=== PATIENT | female | born 1930 | race African-American/Black ===

== ENCOUNTER 2017-04-06 12:37 | Emergency (ER) | payer MEDICARE, MEDICAID ==
[~2017-04-06] VITALS: Ht 162.6 cm; Wt 61.2 kg
[2017-04-06] MEDS ORDERED: Zemuron 50mg/5ml Inj IV ONE ×2 (13:12→15:15)
[2017-04-06 13:35] VITALS: BP 188/86
[2017-04-06 13:40] LABS: APPEARANCE,URINE CLEAR; KETONES,URINE 1+ (NEGATIVE); LEUKOCYTE ESTERASE ,URINE NEGATIVE (NEGATIVE); NITRITE,URINE NEGATIVE (NEGATIVE); PH,URINE 7 (4.5-8.0); PROTEIN,URINE 1+ (NEGATIVE); UROBILINOGEN,URINE NORMAL MG/DL (0.0-1.0)
[2017-04-06 13:43] LABS: MEAN CORPUSCULAR HEMOGLOBIN 32.9 PG (27.0-31.0); MEAN CORPUSCULAR HGB CONC 33.7 G/DL (32.0-36.0); MEAN CORPUSCULAR VOLUME 97 FL (80-99); MEAN PLATELET VOLUME 7.8 FL (6.5-10.1); PLATELET COUNT 209 K/UL (150-450); RED BLOOD COUNT 3.71 M/UL (4.20-5.40); RED CELL DISTRIBUTION WIDTH 12.1 % (11.6-14.8); WHITE BLOOD COUNT 13.2 K/UL (4.8-10.8)
--- NOTE | 2017-04-06 13:44 | Diagnostic Imaging Report ---
Indication: Dyspnea Comparison: None A single view chest radiograph was obtained. Findings: No definite infiltrate or pulmonary vascular congestion identified. The heart is enlarged. The aorta is mildly enlarged consistent with atherosclerotic vascular disease. The bones are osteopenic. Impression: No acute disease
[2017-04-06 13:52] LABS: ANION GAP 15 mmol/L (5-15); CALCIUM 8.6 MG/DL (8.5-10.1); CARBON DIOXIDE 24 MMOL/L (21-32); CHLORIDE 102 MMOL/L (98-107); CREATININE 1.1 MG/DL (0.55-1.30); POTASSIUM 3.5 MMOL/L (3.5-5.1); SODIUM 140 MMOL/L (136-145)
[2017-04-06 13:54] LABS: BACTERIA,URINE OCCASIONAL /HPF; SQUAMOUS EPITHELIAL CELL,UR OCCASIONAL /LPF (NONE/OCC); WBC,URINE 0-2 /HPF (0 - 2)
[2017-04-06 13:57] LABS: BAND NEUTROPHILS % (MANUAL) 0 % (0-8); BASOPHILS % (MANUAL) 0 % (0-2); EOSINOPHILS % (MANUAL) 0 % (0-3); LYMPHOCYTES % (MANUAL) 9 % (20-45); NEUTROPHILS % (MANUAL) 89 % (45-75); PLATELET ESTIMATE ADEQUATE; PLATELET MORPHOLOGY NORMAL; TOTAL CELLS COUNTED 100
[2017-04-06 14:06] LABS: ALANINE AMINOTRANSFERASE 16 U/L (12-78); ALBUMIN/GLOBULIN RATIO 0.9 (1.0-2.7); ASPARTATE AMINO TRANSFERASE 23 U/L (15-37); CKMB 4.2 NG/ML (0.0-3.6); TOTAL PROTEIN 7.9 G/DL (6.4-8.2)
--- NOTE | 2017-04-06 14:19 | Diagnostic Imaging Report ---
Indication: Altered mental status Technique: Contiguous 5 mm thick transaxial imaging of the head obtained in a Siemens Sensation [address] scanner. Soft tissue and bone windows generated. Automatic Exposure Control was utilized. Total Dose length Product (DLP): 1383.[address] Dose Index Volume (CTDIvol): 70.38 mGy Comparison: none Findings: There is a 5.1 x 3.5 x 4.5 cm (transverse, AP, craniocaudal dimensions respectively) right-sided high attenuation parenchymal hematoma consistent with an acute intracerebral bleed seen in the area of the right temporal lobe and parietal lobe associated with edema, mass effect and moderate right to left midline shift of about 1.5 cm, (measured at the septum pellucidum). The right lateral ventricle is almost completely effaced. Effacement of multiple sulci in the right cerebral hemisphere noted. The suprasellar cistern is effaced and not visualized. There is a hint of an open right ambient cistern. The rest of the basal cisterns are not visualized and effaced. There is intraventricular extension of high density blood. There is unilateral trapping of the left lateral ventricle with dilatation of the temporal horn. There is an acute hyperdense right-sided subdural hematoma over the cerebral convexity with some tracking of blood into the anterior part of the interhemispheric fissure. The subdural hematoma over the cerebral convexity has a maximum transaxial thickness of about 1 cm. IMPRESSION: Large acute right temporal/parietal intraparenchymal hematoma with associated mass effect and edema and 1.5 cm subfalcine and transtentorial herniation right to left. Effacement of most of the basal cisterns. Acute right subdural hematoma over the cerebral convexity. Critical value communication. Findings were discussed via telephone with Dr. Lam in the E.D. at 2:10PM, 04/06/[address] scanner at [facility] is accredited by the [employer] and the scans are performed using dose optimization techniques as appropriate to a performed exam including Automatic Exposure control.
[2017-04-06] MEDS ORDERED: levETIRAcetam 500 MG in D5W 110 ML IV ONE (14:30)
[2017-04-06] MEDS ORDERED: Mannitol 20% IV 500 ML IV ONE (14:30)
[2017-04-06] MEDS ORDERED: Phytonadione 1 MG in D5W 55 ML IVPB ONE (14:30)
[2017-04-06 14:40] VITALS: BP 189/87
[2017-04-06] MEDS ORDERED: levETIRAcetam 500mg vial IV ONE (14:49)
--- NOTE | 2017-04-06 15:12 | Diagnostic Imaging Report ---
Indication: Intubation Comparison: None A single view chest radiograph was obtained. Findings: Endotracheal tube is in good position a few centimeters above the jc. There is mild parenchymal density in the right upper lobe which may be an infiltrate or atelectasis. Borderline cardiomegaly noted. Aorta is mildly ectatic. Bones are osteopenic. IMPRESSION: Endotracheal tube in good position. Infiltrate versus mild atelectasis right upper lobe
[2017-04-06] MEDS ORDERED: Etomidate 40mg/20ml Inj IV ONE (15:15)
[2017-04-06 15:28] VITALS: BP 160/60
[2017-04-06 15:44] LABS: INR 0.9 (0.9-1.1); PROTHROMBIN TIME 9.9 SEC (9.30-11.50)
--- NOTE | 2017-04-06 15:45 | Emergency Room Report ---
History of Present Illness General Chief Complaint: Altered Level of Consciousness Source: EMS Present Illness HPI 87-year-old female presents ED with altered mental status. Patient was found down in her assisted-living facility today. found down. Unknown period of time. Upon arrival patient is lethargic. breathing with OPA. Patient is unable to provide any additional history at this time. No other aggravating relieving factors. No other associated symptoms Allergies: Coded Allergies: CODEINE (Unverified Allergy, Unknown, 04/06/17) Patient History Past Medical History: DM, HTN, dementia Past Surgical History: none Pertinent Family History: none Social History: Denies: smoking, alcohol use, drug use Now: No Immunizations: UTD Reviewed Nursing Documentation: PMH: Agreed, PSxH: Agreed Nursing Documentation-PMH Past Medical History: No History, Except For Hx Cardiac Problems: Yes Hx Hypertension: Yes Hx Diabetes: Yes Hx Neurological Problems: Yes - DEMENTIA Review of Systems All Other Systems: limited Physical Exam Vital Signs Date Time Temp Pulse Resp B/P (MAP) Pulse Ox O2 Delivery O2 Flow Rate FiO2 04/06/17 12:26 84 16 169/72 99 Room Air 04/06/17 15:11 30 04/06/17 15:28 98.0 Sp02 EP Interpretation: reviewed, normal General Appearance: lethargic, thin Head: normocephalic Eyes: bilateral eye normal inspection, bilateral eye PERRL ENT: normal ENT inspection Neck: other - Ccollar Respiratory: chest non-tender, lungs clear, normal breath sounds, speaking full sentences Cardiovascular #1: regular rate, rhythm, no edema Gastrointestinal: normal bowel sounds, non tender, soft, non-distended, no guarding, no rebound Rectal: deferred Genitourinary: no CVA tenderness Musculoskeletal: normal inspection Neurologic: other - lethargic Psychiatric: other - lethargic Skin: normal inspection Lymphatic: normal inspection Procedures Critical Care Time Critical Care Time i. I feel this is a highly complex case requiring extensive working including EKG/Rhythm strip, Xray/CT/US, Blood/urine lab work, repeat exams while in ED, and administration of strong opiates/narcotics for pain control, admission to hospital or close patient follow up. Total time: 30 min bedside evaluation and treatment excludes procedures (EKG). Reason for critical care: Brain bleed, unresponsive Possible complications: hypotension, hypertension, IL, shock, arrhythmias, metabolic acidosis, end organ damage, respiratory failure. Interventions: Labs, IV fluids, EKG, chest x-ray, CT head. Intubation. Mannitol. Keppra. Vitamin K. Consultation with neurosurgery at [facility] Course: Patient presenting with altered mental status after found down. Labs show minimally elevated troponin, minimal leukocytosis. CT brain shows large intraparenchymal hemorrhage with midline shift. I intubated the patient for airway precautions. Given IV Keppra and mannitol. Given vitamin K. Discussed case with PMD Dr. Moreno and family. Discussed with neurosurgery at [facility] and patient will be transferred for higher level of care Consultations: nursing staff, EMS, family Performed by: Dr Lam Tolerated well condition = critical j. because of unstable vital signs this patient had a condition that could potentially threaten life or limb. I feel this is a critical patient who required my full attention while patient was considered critical. Total Critical Care Time excluding procedures was greater than 35 minutes Medical Decision Making Diagnostic Impression: Primary Impression: Intraparenchymal hemorrhage of brain Additional Impression: Altered level of consciousness ER Course Hospital Course 87-year-old female presents ED found down, altered and lethargic Differential diagnosis includes- breakthrough seizure, alcohol abuse, noncompliance with medication Clinical course Patient placed on stretcher. Initial history and physical I ordered labs, IV fluids, EKG, CXR, CT brain Labs- minimal leukocytosis, hemoglobin/hematocrit stable, electrolytes okay, troponin minimally elevated Chest x-ray unremarkable EKG-no acute ischemic changes interpreted by me CT Brain intraparenchymal bleed noted with mass effect, edema, with midline shift Given loading dose of Keppra. given IV Mannitol, Given Vitamin K. because of labored breathing, altered mental status and significant midline shift patient is intubated. IV hydralazine given to keep blood pressure under systolic 160 Patient will be transferred at [facility] for higher level of care. Case endorsed to neurosurgeon i. I feel this is a highly complex case requiring extensive working including EKG/Rhythm strip, Xray/CT/US, Blood/urine lab work, repeat exams while in ED, and administration of strong opiates/narcotics for pain control, admission to hospital or close patient follow up. Diagnosis - intraparenchymal bleed, ALOC transferred in critical condition Labs Test 04/06/17 13:12 White Blood Count 13.2 K/UL (4.8-10.8) Red Blood Count 3.71 M/UL (4.20-5.40) Hemoglobin 12.2 G/DL (12.0-16.0) Hematocrit 36.1 % (37.0-47.0) Mean Corpuscular Volume 97 FL (80-99) Mean Corpuscular Hemoglobin 32.9 PG (27.0-31.0) Mean Corpuscular Hemoglobin Concent 33.7 G/DL (32.0-36.0) Red Cell Distribution Width 12.1 % (11.6-14.8) Platelet Count 209 K/UL (150-450) Mean Platelet Volume 7.8 FL (6.5-10.1) Neutrophils (%) (Auto) % (45.0-75.0) Lymphocytes (%) (Auto) % (20.0-45.0) Monocytes (%) (Auto) % (1.0-10.0) Eosinophils (%) (Auto) % (0.0-3.0) Basophils (%) (Auto) % (0.0-2.0) Differential Total Cells Counted 100 Neutrophils % (Manual) 89 % (45-75) Lymphocytes % (Manual) 9 % (20-45) Monocytes % (Manual) 2 % (1-10) Eosinophils % (Manual) 0 % (0-3) Basophils % (Manual) 0 % (0-2) Band Neutrophils 0 % (0-8) Platelet Estimate Adequate Platelet Morphology Normal Red Blood Cell Morphology Normal Urine Color Pale yellow Urine Appearance Clear Urine pH 7 (4.5-8.0) Urine Specific [place] 1.005 (1.005-1.035) Urine Protein 1+ (NEGATIVE) Urine Glucose (UA) 3+ (NEGATIVE) Urine Ketones 1+ (NEGATIVE) Urine Occult Blood 3+ (NEGATIVE) Urine Nitrite Negative (NEGATIVE) Urine Bilirubin Negative (NEGATIVE) Urine Urobilinogen Normal MG/DL (0.0-1.0) Urine Leukocyte Esterase Negative (NEGATIVE) Urine RBC 2-4 /HPF (0 - 2) Urine WBC 0-2 /HPF (0 - 2) Urine Squamous Epithelial Cells Occasional /LPF Urine Bacteria Occasional /HPF (NONE) Sodium Level 140 MMOL/L (136-145) Potassium Level 3.5 MMOL/L (3.5-5.1) Chloride Level 102 MMOL/L (98-107) Carbon Dioxide Level 24 MMOL/L (21-32) Anion Gap 15 mmol/L (5-15) Blood Urea Nitrogen 14 mg/dL (7-18) Creatinine 1.1 MG/DL (0.55-1.30) Estimat Glomerular Filtration Rate mL/min (>60) Glucose Level 217 MG/DL (74-106) Calcium Level 8.6 MG/DL (8.5-10.1) Total Bilirubin 0.6 MG/DL (0.2-1.0) Aspartate Amino Transf (AST/SGOT) 23 U/L (15-37) Alanine Aminotransferase (ALT/SGPT) 16 U/L (12-78) Alkaline Phosphatase 134 U/L (46-116) Total Creatine Kinase 210 U/L (26-308) Creatine Kinase MB 4.2 NG/ML (0.0-3.6) Creatine Kinase MB Relative Index 2.0 Troponin I 0.062 ng/mL (0.000-0.056) Pro-B-Type Natriuretic Peptide 801 pg/mL (0-125) Total Protein 7.9 G/DL (6.4-8.2) Albumin 3.8 G/DL (3.4-5.0) Globulin 4.1 g/dL Albumin/Globulin Ratio 0.9 (1.0-2.7) EKG Diagnostic Results Rate: normal Rhythm: NSR ST Segments: no acute changes ASA given to the pt in ED: No Rhythm Strip Diag. Results EP Interpretation: yes Rhythm: NSR, no PVC's, no ectopy Chest X-Ray Diagnostic Results Chest X-Ray Diagnostic Results : Chest X-Ray Ordered: Yes # of Views/Limited/Complete: 1 View Indication: Other - aloc EP Interpretation: Yes Interpretation: no consolidation, no effusion, no pneumothorax, no acute cardiopulmonary disease Impression: No acute disease Electronically Signed by: Electronically signed by Lionel Lam MD CT/MRI/US Diagnostic Results CT/MRI/US Diagnostic Results : Imaging Test Ordered: CT head Impression 5.1 x 3.5 x 4.5 probable hematoma on the right temporal lobe and parietal lobe. Associated edema and mass effect. Moderate right to left midline shift at 1.5 cm. Right lateral ventricle completely effaced. Acute right subdural hematoma over the cerebral convexity. Last Vital Signs Date Time Temp Pulse Resp B/P (MAP) Pulse Ox O2 Delivery O2 Flow Rate FiO2 04/06/17 15:28 98.0 87 16 160/60 100 Mechanical Ventilator 04/06/17 15:11 30 Status: improved Disposition: XFER SHT-TRM HOSP Condition: Critical Scripts Unable to Obtain Active Prescriptions or Reported Meds Referrals: [facility] (PCP) LIONEL LAM M.D. Apr 06, 2017 15:45
[2017-04-06 15:59] VITALS: BP 160/60
--- NOTE | 2017-04-13 10:11 | Diagnostic Imaging Report ---
Indication: Pain, trauma Technique: Spiral acquisitions obtained through the cervical spine. No IV contrast utilized. Multiplanar reconstructions were generated. Total dose length product 300.9 mGycm. CTDIvol(s) 14.47 mGy. Dose reduction achieved using automated exposure control. Comparison: none Findings: Exam is limited, as axial bone algorithm images are not available, and the data are no longer available to reconstruct these. There is straightening of the normal cervical lordosis. There is slight anterior offset of C2-3 on C4. Otherwise normal bony alignment. No gross acute fractures. No dislocations. Except for some degenerative remodeling, the vertebral body heights are preserved. There is degenerative remodeling of the bilateral C2 lateral masses, which results in settling of C1 on C2. 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 There is degenerative narrowing of the anterior atlantoaxial joint as well as of the lateral facets, particularly on the left. At C2-3, there is mild bilateral neural foraminal stenosis. There is broad-based central posterior disc protrusion which does not significantly narrow the spinal canal. There is is minimal degenerative disc narrowing. At C3-4, there is moderate to severe degenerative disc narrowing. No significant spinal stenosis. There is moderate to severe right, severe left neural foraminal stenosis. There is bilateral severe facet arthrosis. At C4-5, there is moderate to severe degenerative disc narrowing. There is moderate right, minimal left neural foraminal stenosis. No significant disc bulge or protrusion or spinal stenosis. There is bilateral facet arthrosis. There is ankylosis of the right facet. Uncertain as to whether this is developmental or acquired At C5-6, no significant disc bulge or protrusion or spinal stenosis. There is mild left, moderate right neural foraminal stenosis. There is moderate to severe degenerative disc narrowing. There is bilateral facet arthrosis. At C6-7, there is moderate to severe degenerative disc narrowing. There is mild bilateral neural foraminal stenosis. No significant disc bulge or protrusion or spinal stenosis. There is bilateral facet arthrosis. At C7-T1, no significant disc bulge or protrusion, spinal stenosis, or neural foraminal narrowing. The included extraspinal soft tissues are unremarkable. There is an oral airway in place. Impression: No acute bony trauma Degenerative changes, as detailed on a level by level basis above Limited exam, as described The CT scanner at [facility] is accredited by the [employer] and the scans are performed using protocols designed to limit radiation exposure to as low as reasonably achievable to attain images of sufficient resolution adequate for diagnostic evaluation.
--- NOTE | 2017-04-19 00:21 | Cardiology Report ---
APPROVED REPORT EKG Measurement Heart [id number] Sinus rhythm with 1st degree AV block Right bundle branch block Abnormal ECG
== END 2017-04-06 16:00 | disposition short-term general hospital (02) ==
LOC: EDBD 12:37 → EMR 13:11
DX: S06.5X9A Traumatic subdural hemorrhage with loss of consciousness of unspecified duration, initial encounter (principal); W19.XXXA Unspecified fall, initial encounter; Y92.121 Bathroom in nursing home as the place of occurrence of the external cause; I10 Essential (primary) hypertension; E11.9 Type 2 diabetes mellitus without complications; F03.90 Unspecified dementia, unspecified severity, without behavioral disturbance, psychotic disturbance, mood disturbance, and anxiety; Z88.6 Allergy status to analgesic agent
CPT/HCPCS: 36415; 51701; 70450; 71010; 72125; 80053; 81003; 82550; 82553; 83880; 84484; 85007; 85025; 85610; 85730; 93005; 94002; 96361; 96365; 96366; 96375; 99291; J0360; J1953; J2150; J3430